=== PATIENT | male | born 1980 | race Caucasian/White ===

== ENCOUNTER 2019-12-20 06:55 | Emergency (ER) | payer BC, OTHER ==
[2019-12-20] MEDS ORDERED: HYDROcodone/Acetaminophen 10/325 mg Tablet ONE (07:26)
[2019-12-20] MEDS ORDERED: Ketorolac Tromethamine 30 MG/ML VIAL ONE (07:26)
--- NOTE | 2019-12-20 07:57 | RAD ---
Exam: One view chest 3 views left RIBS HISTORY: Pain Comparison 2 views chest 11/09/2019 FINDINGS: One View chest: Cardiomegaly. Sternotomy wires. Pulmonary vessels and hilum are normal. Costophrenic angles are clear. Hyperinflation with chronic changes. No pneumothorax. There appear to be chronic changes to the left and right hemithorax. Left ribs 3 views: No fracture, cortical irregularity or periosteal reaction. IMPRESSION: 1. No acute cardiopulmonary process. 2. Chronic changes the left and right ribs. No evidence of acute rib fracture.
== END 2019-12-20 09:30 | disposition home or self-care (01) ==
LOC: ERS 06:55
DX: R07.81 Pleurodynia (principal); R05 Cough; I10 Essential (primary) hypertension; Z79.899 Other long term (current) drug therapy
CPT/HCPCS: 96372; J1885